=== PATIENT | male | born 1990 | race Two or more races ===

== ENCOUNTER 2019-11-10 17:32 | Inpatient (IN) | payer MEDICAID, OTHER ==
[~2019-11-10] VITALS: Ht 180.3 cm; Wt 79.8 kg
--- NOTE | 2019-11-10 17:43 | NUR ---
RACHNA. REPORT RECEIVED FROM EMS. PT C/O ALL OVER THE BODY PAIN. PT STATES " ARTHRITIS". DENIES ANY OTHER SX. PT DENIES ETOH. PT'S AOX4. RESPS EVEN AND UNLABORED. SINUS TACHY RATE 120'S ON OPERATIONS EXECUTIVE AT THIS TIME. ALL MONITORS IN PLACE. CALL LIGHT WITHIN REACH.
--- NOTE | 2019-11-10 18:36 | NUR ---
EDMD AT BEDSIDE TO EVALUATE AT THIS TIME.
--- NOTE | 2019-11-10 18:47 | NUR ---
requested records from [facility] in [facility] for dr muse
--- NOTE | 2019-11-10 18:48 | NUR ---
REPORT GIVEN TO YANDY MARTINEZ.
[2019-11-10] MEDS ORDERED: SODIUM CHLORIDE FLUSH 10ML SYR IVF ONE (19:00)
[2019-11-10] MEDS ORDERED: PLEASE ENTER ALLERGIES MC SCH (19:00)
[2019-11-10 19:14] LABS: ALBUMIN 2.5 g/dL (3.4-5.0); ANION GAP 10 mmol/L (5-15); CALCIUM 9.5 mg/dL (8.5-10.1); CHLORIDE 102 mmol/L (98-107); CREATININE 0.71 mg/dL (0.7-1.3)
[2019-11-10 19:33] LABS: MEAN CORPUSCULAR HEMOGLOBIN 25.7 pg (27.5-34.5); MEAN CORPUSCULAR HGB CONC 31.7 g/dL (33.2-36.2); MEAN PLATELET VOLUME 5.8 fL (7.4-10.4); RED BLOOD COUNT 3.63 x10^6/uL (4.38-5.82)
[2019-11-10 19:43] LABS: PLATELET COUNT > 1500 x10^3/uL (130-400)
[2019-11-10 19:51] LABS: MICROSCOPIC INDICATED
[2019-11-10 19:58] LABS: AMPHETAMINE SCREEN, URINE Negative (Negative); BARBITURATE SCREEN, URINE Negative (Negative); BENZODIAZEPINE SCREEN, URINE Negative (Negative); CANNABINOID SCREEN, URINE Positive (Negative); COCAINE SCREEN, URINE Positive (Negative); METHADONE SCREEN, URINE Negative (Negative); OPIATE SCREEN, URINE Negative (Negative)
[2019-11-10] MEDS ORDERED: MORPHINE SULFATE 4 MG/ML, 1ML IVPush PRN (20:00)
[2019-11-10] MEDS ORDERED: ENOXAPARIN 80 MG/0.8 ML SQ SCH (20:00)
[2019-11-10] MEDS ORDERED: ONDANSETRON 2MG/ML, 2ML IVPush ONE (20:00)
[2019-11-10] MEDS ORDERED: SODIUM CHLORIDE 0.9% 1,000ML IVBOLUS ONE (20:00)
[2019-11-10 20:02] LABS: CULTURE INDICATED? NO
[2019-11-10] MEDS ORDERED: MORPHINE SULFATE 4 MG/ML, 1ML ONE (20:12)
[2019-11-10] MEDS ORDERED: ENOXAPARIN 100 MG/ML ONE (20:12)
[2019-11-10] MEDS ORDERED: ONDANSETRON 2MG/ML, 2ML ONE (20:12)
[2019-11-10] MEDS ORDERED: SODIUM CHLORIDE 0.9% 1,000 ML IV ONE (20:30)
[2019-11-10] MEDS ORDERED: SODIUM CHLORIDE FLUSH 10ML SYR IVF PRN (20:30)
[2019-11-10 20:31] LABS: MD YES
[2019-11-10 20:42] LABS: LYMPH#(MANUAL) 2.91 x10^3/uL (1-3.4); LYMPHS% (MANUAL) 19 % (22-44); MONOS#(MANUAL) 1.22 x10^3/uL (0.3-2.7); MONOS% (MANUAL) 8 % (2-9); SEG#(MANUAL) 11.17 x10^3/uL (1.8-6.8); SEGS% (MANUAL) 73 % (42-75)
[2019-11-10 20:48] LABS: POLYCHROMASIA 1+
[2019-11-10 20:50] LABS: ANISOCYTOSIS 2+; HYPOCHROMIA 1+; MICROCYTOSIS 1+
[2019-11-10 20:51] LABS: <PLATELET ESTIMATE> INCREASED; SMALL PLATELETS 1+
[2019-11-10 21:14] LABS: SEDIMENTATION RATE > 120 mm/hr (0-10)
[2019-11-10 21:20] LABS: HCT (SEDRATE) 29.4 % (39.2-51.8)
--- NOTE | 2019-11-10 21:23 | NUR ---
PIV PLACED AND PT MEDICATED FOR PAIN PER EMAR. PT VERBALIZED PAIN RELIEF. DR RENEE IN TO UPDATE PT ON POC.
--- NOTE | 2019-11-10 21:24 | NUR ---
REPORT TO JUAN MCGHEE
[2019-11-10 22:31] VITALS: BP 128/79
[2019-11-10] MEDS ORDERED: NICOTINE 14MG/24 HR PATCH.TD24 TD SCH (23:00)
[2019-11-10] MEDS ORDERED: TEMAZEPAM 15 MG CAPSULE PO PRN (23:00)
[2019-11-10] MEDS ORDERED: IBUPROFEN 600 MG TABLET PO PRN (23:00)
[2019-11-10] MEDS ORDERED: DOCUSATE 100 MG CAPSULE PO PRN (23:00)
[2019-11-10] MEDS ORDERED: ACETAMINOPHEN 325 MG TABLET PO PRN (23:00)
[2019-11-10] MEDS ORDERED: LIDODERM 5% PATCH TD PRN (23:00)
[2019-11-10] MEDS ORDERED: ONDANSETRON 2MG/ML, 2ML IVPush PRN (23:00)
[2019-11-10] MEDS: HYDROcodone/APAP 5/325 TABLET PO PRN (23:42)
[2019-11-10] MEDS: SODIUM CHLORIDE 0.9% 1,000 ML IV SCH (23:43)
[2019-11-11 01:39] VITALS: BP 135/81
[2019-11-11] MEDS: HYDROcodone/APAP 5/325 TABLET PO PRN (05:57)
[2019-11-11 06:07] LABS: ANION GAP 5 mmol/L (5-15); CALCIUM 8.9 mg/dL (8.5-10.1); CHLORIDE 104 mmol/L (98-107)
[2019-11-11 06:08] LABS: CREATININE 0.69 mg/dL (0.7-1.3)
[2019-11-11 06:27] LABS: MEAN CORPUSCULAR HEMOGLOBIN 25.6 pg (27.5-34.5); MEAN CORPUSCULAR HGB CONC 31.4 g/dL (33.2-36.2); MEAN CORPUSCULAR VOLUME 81.8 fL (81-97); RED BLOOD COUNT 3.05 x10^6/uL (4.38-5.82); RED CELL DISTRIBUTION WIDTH 17.8 % (9.4-14.8)
[2019-11-11 07:09] LABS: MEAN PLATELET VOLUME 5.9 fL (7.4-10.4)
[2019-11-11 07:10] LABS: BASOPHILS # (AUTO) 0.06 x10^3/uL (0-0.1); BASOPHILS % (AUTO) 1 % (0-1); EOSINOPHILS # (AUTO) 0.23 x10^3/uL (0-0.4); EOSINOPHILS % (AUTO) 2 % (1-7); LYMPHOCYTES # (AUTO) 2.26 x10^3/uL (1-3.4); LYMPHOCYTES % (AUTO) 20 % (22-44); MD SCAN; MONOCYTES # (AUTO) 1.68 x10^3/uL (0.2-0.8); MONOCYTES % (AUTO) 15 % (2-9); NEUTROPHILS # (AUTO) 7.05 x10^3/uL (1.8-6.8); NEUTROPHILS % (AUTO) 63 % (42-75)
[2019-11-11 07:13] LABS: PLATELET COUNT 1788 x10^3/uL (130-400)
[2019-11-11] MEDS ORDERED: ENOXAPARIN 80 MG/0.8 ML SQ SCH (08:00)
[2019-11-11] MEDS: SODIUM CHLORIDE 0.9% 1,000 ML IV SCH (08:20)
== END 2019-11-11 12:52 | disposition left against medical advice (07) | DRG 660 ==
LOC: ED 20:08 → EDIP 20:30 → 3N 21:58
PROVIDERS: ADMIT Emergency Medicine; ATTEND Emergency Medicine
DX: D59.1 Other autoimmune hemolytic anemias (principal); D68.59 Other primary thrombophilia; D47.3 Essential (hemorrhagic) thrombocythemia; M02.30 Reiter's disease, unspecified site; B96.81 Helicobacter pylori [H. pylori] as the cause of diseases classified elsewhere; D72.829 Elevated white blood cell count, unspecified; F12.10 Cannabis abuse, uncomplicated; F14.10 Cocaine abuse, uncomplicated; F17.210 Nicotine dependence, cigarettes, uncomplicated
CPT/HCPCS: 36415; 80048; 80307; 81001; 82040; 83605; 84145; 85025; 85651; 87040; G0378; J1650; J2405; J2270; J7030

== ENCOUNTER 2019-12-17 11:17 | Emergency (ER) | payer MEDICAID, OTHER ==
[~2019-12-17] VITALS: Ht 177.8 cm; Wt 95.0 kg
[2019-12-17 11:27] VITALS: BP 135/72
[2019-12-17] MEDS ORDERED: KETOROLAC 30 MG/1 ML ONE (12:22)
[2019-12-17] MEDS ORDERED: KETOROLAC 30 MG/1 ML IM ONE (12:30)
== END 2019-12-17 12:39 | disposition home or self-care (01) ==
LOC: ED 12:28
DX: S80.02XA Contusion of left knee, initial encounter (principal); F17.200 Nicotine dependence, unspecified, uncomplicated; W06.XXXA Fall from bed, initial encounter; Y93.89 Activity, other specified; Y92.098 Other place in other non-institutional residence as the place of occurrence of the external cause; Y99.8 Other external cause status
CPT/HCPCS: 73564; 96372; 99283; J1885